=== PATIENT | female | born 1985 | race American Indian/Alaskan Native ===

== ENCOUNTER 2017-02-22 10:58 | Outpatient (CLI) | payer OTHER ==
--- NOTE | 2017-02-22 13:19 | RAD ---
TWO VIEWS CHEST: Date: 02-22-17 Comparison: None. History: Renal mass. FINDINGS: Lungs are clear. Heart and mediastinal contours unremarkable. No acute osseous abnormality. Multilev el disc space narrowing and anterior osteophyte formation noted within the thoracic spine. Clips in the upper abdomen suggest prior cholecystectomy. IMPRESSION: No acute findings. POS: [facility]
[2017-02-22 14:45] LABS: Bilirubin Negative (Negative); Blood, Urine Negative (Negative); Glucose, Urine (Dipstick) Negative (Negative); Ketone, Urine Negative (Negative); Nitrite Negative (Negative); Protein, Urine (Dipstick) Negative (Neg-Trace); Urobilinogen 0.2 mg/dL (0.2-1.0)
[2017-02-22 14:47] LABS: Bacteria/HPF 1+ HPF (None Seen); Hyaline Casts/LPF 0-3 HYALINE CAST LPF (0-3 Hyaline); RBC/HPF 0-3 HPF (0-3); WBC/HPF 0-3 HPF (0-3)
== END 2017-02-22 10:59 | disposition home or self-care (01) ==
LOC: RAD 10:58
PROVIDERS: ATTEND Urology
DX: N28.89 Other specified disorders of kidney and ureter (principal)
CPT/HCPCS: 36415; 71020; 80076; 81001

== ENCOUNTER 2023-02-14 13:51 | Outpatient (CLI) | payer BC ==
[2023-02-14 14:49] LABS: #Basophils 0.1 10x3/uL (0.0-0.2); #Eosinphils 0.7 10x3/uL (0.0-0.5); #Monocytes 0.5 10x3/uL (0.0-1.1); %Basophils 0.8 % (0.0-2.0); %Eosinophils 5.7 % (0.0-6.0); %Lymphocytes 27.2 % (18.0-47.0); %Monocytes 3.9 % (0.0-10.0); %Neutrophils 62.1 % (40.0-75.0); Hematocrit 42.4 % (34.9-44.5); Hemoglobin 14.6 g/dL (12.0-15.5); Mean Corpuscular HGB CONC 34.4 g/dL (32.0-36.0); Mean Corpuscular Hemoglobin 33.6 pg (27.0-33.0); Mean Corpuscular Volume 97.7 fl (81.6-98.3); Mean Platelet Volume 9.9 fl (7.4-10.4); Platelet Count 373 10x3/uL (150-450); RBC Distribution Width 14.6 % (11.5-14.5); Red Blood Cell (RBC) Count 4.34 10x6/uL (3.90-5.03)
[2023-02-14 14:53] LABS: Anion Gap 13 mmol/L (10-20); BUN (Urea Nitrogen) 10 mg/dL (7.0-18.7); Calc. Creatinine Clearance 0 mL/min (70-130); Calcium 8.9 mg/dL (7.8-10.44); Carbon Dioxide 23 mmol/L (22-29); Chloride 108 mmol/L (98-107); Estimated GFR 92; Glucose 148 mg/dL (70-105); Potassium 3.8 mmol/L (3.5-5.1); Sodium 140 mmol/L (136-145)
[2023-02-14 15:28] LABS: BHCG - Serum Negative (NEGATIVE); Pregs Control Background? CLEAR/WHITE (CLR/WHITE); Pregs Control Bar Appear? YES (CONTROL BAR)
== END 2023-02-14 13:52 | disposition home or self-care (01) ==
LOC: LABBT 13:51
PROVIDERS: ATTEND Specialist
DX: Z01.818 Encounter for other preprocedural examination (principal); K43.9 Ventral hernia without obstruction or gangrene
CPT/HCPCS: 80048; 84703; 85025; 93005; 93010

== ENCOUNTER 2023-02-17 10:47 | Day surgery (SDC) | payer BC ==
[2023-02-14 14:29] VITALS: BMI 41.8
[2023-02-17] MEDS ORDERED: Ketorolac Tromethamine 30 MG/ML VIAL ONE (11:36)
[2023-02-17] MEDS ORDERED: Acetaminophen 500 MG TAB ONE (11:36)
[2023-02-17] MEDS ORDERED: EPINEPHrine 1 MG/ML AMP ONE (12:31)
[2023-02-17] MEDS ORDERED: Bupivacaine 0.25% HCL 30 ML VIAL ONE (12:31)
[2023-02-17] MEDS ORDERED: fentaNYL PF 100 MCG/2 ML SYRINGE ONE (12:38)
[2023-02-17] MEDS ORDERED: Sodium Chloride 0.9% 100 ML ONE (12:43)
[2023-02-17] MEDS ORDERED: CEFAZOLIN 2 GM VIAL ONE (12:43)
[2023-02-17] MEDS ORDERED: Scopolamine 1.5 mg/72 hour Patch ONE (12:45)
[2023-02-17] MEDS ORDERED: Lidocaine 1% PF 5 ML VIAL ONE (13:04)
[2023-02-17] MEDS ORDERED: NEOSTIGMINE 3 MG/3 ML SYR 3 MG/3 ML SYRINGE ONE (13:04)
[2023-02-17] MEDS ORDERED: Ondansetron PF 4 MG/2 ML Vial ONE ×2 (13:04→15:40)
[2023-02-17] MEDS ORDERED: Rocuronium Bromide 10 MG/ML (10ML VIAL) ONE (13:04)
[2023-02-17] MEDS ORDERED: PROPOFOL 200 MG/20 ML VIAL ONE (13:04)
[2023-02-17] MEDS ORDERED: Dexamethasone 20 MG/5 ML VIAL ONE (13:04)
[2023-02-17] MEDS ORDERED: Metoclopramide HCl 10 MG/2 ML VIAL ONE (13:04)
[2023-02-17] MEDS ORDERED: Glycopyrrolate 0.2 MG/ML 5 ML SYRINGE ONE (13:04)
[2023-02-17] MEDS ORDERED: fentaNYL 50 mcg/mL 1 mL Vial ONE ×3 (14:41→15:22)
[2023-02-17] MEDS ORDERED: HYDROcodone/Acetaminophen 5/325 mg Tablet ONE (17:02)
[2023-02-17] MEDS ORDERED: traMADol HCl 50 MG TAB ONE (17:07)
== END 2023-02-17 17:30 | disposition home or self-care (01) ==
LOC: SDC 10:47
PROVIDERS: ATTEND Specialist
PROC: 0WUF4JZ Supplement Abdominal Wall with Synthetic Substitute, Percutaneous Endoscopic Approach (ICD-10-PCS; principal; 2023-02-17)
DX: K43.9 Ventral hernia without obstruction or gangrene (principal); E66.01 Morbid (severe) obesity due to excess calories; Z88.5 Allergy status to narcotic agent; Z88.1 Allergy status to other antibiotic agents; Z98.890 Other specified postprocedural states; Z68.41 Body mass index [BMI] 40.0-44.9, adult
CPT/HCPCS: C1781; J0171; J1100; J1885; J2405; J2704; J2765; J3010; J3490; S0020